=== PATIENT | female | born 1960 | race Caucasian/White ===

== ENCOUNTER → 2023-08-05 | Outpatient (CLI) | payer BC ==
[2023-08-05 12:02] LABS: ALT 27 U/L (4-34); AST 33 U/L (14-36); African American GFR (CKD) >90 (>60 ml/min/1.73 sqM); Albumin 4.5 g/dL (3.5-5.0); Albumin/Globulin Ratio 1.6; Alkaline Phosphatase 98 U/L (38-126); Anion Gap 10 mmol/L; Blood Urea Nitrogen 21 mg/dL (7-17); C Reactive Protein 0.6 mg/dL (<1.0); Calcium 9.8 mg/dL (8.4-10.2); Carbon Dioxide 27 mmol/L (22-30); Chloride 100 mmol/L (98-107); Creatine Kinase 70 U/L (30-135); Globulin 2.8 g/dL; Glucose 99 mg/dL (74-99); Non-African American GFR(CKD) 81 (>60 ml/min/1.73 sqM); Potassium 4.4 mmol/L (3.5-5.1); Sodium 137 mmol/L (137-145); Total Bilirubin 0.9 mg/dL (0.2-1.3); Total Protein 7.3 g/dL (6.3-8.2); Uric Acid 4.4 mg/dL (3.7-7.4)
[2023-08-05 12:08] LABS: NT-Pro-B-Type Natriuretic Pept 372 pg/mL
[2023-08-05 12:13] LABS: Appearance,Urine Clear (Clear); Color,Urine Yellow
[2023-08-05 12:14] LABS: Bilirubin,Urine Negative (Negative); Blood,Urine Negative (Negative); Glucose,Urine (UA) Negative (Negative); Ketones,Urine Negative (Negative); Leukocyte Esterase,Urine Negative (Negative); Nitrite,Urine Negative (Negative); Protein,Urine Negative (Negative); Urobilinogen,Urine 0.2 mg/dL (<2.0)
[2023-08-05 12:23] LABS: Creatinine,Urine Random 40.1 mg/dL; Protein/Creatinine Ratio,Urine 0.299
[2023-08-05 16:07] LABS: Chol/HDL Ratio 2.28 Ratio; LDL Cholesterol,Calculated 95.9 mg/dL (0.0-131.0)
[2023-08-05 18:23] LABS: Basophils # (A) 0.05 X 10*3/uL (0.00-0.10); Basophils % (A) 0.7 %; Eosinophils # (A) 0.12 X 10*3/uL (0.04-0.35); Eosinophils % (A) 1.6 %; HCT 46.7 % (37.2-46.3); HGB 15.4 g/dL (12.0-15.0); Lymphocytes # (A) 0.88 X 10*3/uL (0.90-5.00); Lymphocytes % (A) 11.8 %; MCH 30.9 pg (27.0-32.0); MCV 93.8 FL (80.0-97.0); Mean Platelet Volume 9.5 FL (9.5-12.2); Monocytes # (A) 0.43 X 10*3/uL (0.20-1.00); Monocytes % (A) 5.8 %; NRBC Per 100 WBC 0 X 10*3/uL (0.00-0.01); Neutrophils # (A) 5.95 X 10*3/uL (1.80-7.70); Neutrophils % (A) 79.7 %; Platelet Count 263 X 10*3/uL (140-440); RBC 4.98 X 10*6/uL (4.10-5.20); RDW 12.8 % (11.5-14.5); WBC 7.46 X 10*3/uL (4.50-10.00)
[2023-08-05 18:31] LABS: Erythrocyte Sedimentation Rate 6 mm/Hr (0-30)
[2023-08-05 19:40] LABS: Hepatitis B Core IgM Nonreactive; Hepatitis B Surface AB- Quant 3.5 mIU/mL; Hepatitis B Surface Antigen Nonreactive; Hepatitis C IgG Antibody Nonreactive
[2023-08-06 07:15] LABS: Anti-Smith Ab Interp Negative (Negative)
== END | disposition home or self-care (01) ==
LOC: LABWHC1 10:04
PROVIDERS: ATTEND Family Medicine
DX: Z00.00 Encounter for general adult medical examination without abnormal findings (principal); M34.9 Systemic sclerosis, unspecified
CPT/HCPCS: 36415; 80053; 80061; 81003; 82085; 82550; 82570; 83880; 84156; 84550; 85025; 85652; 86038; 86039; 86140; 86235; 86480; 86704; 86705; 86706; 86803; 87340

== ENCOUNTER → 2023-08-16 | Outpatient (CLI) | payer BC ==
--- NOTE | 2023-08-16 12:19 | CA ---
Transthoracic Echo Report Name: Audrey Wolf Age: 63 Gender: F : 1960 Exam Date: 08/16/2023 11:33 Exam Location: [facility] Ht (in): 62 Wt (lb): 120 Ordering Physician: Dulce Maria North DO Attending/Referring Phys: Dulce Maria North DO [employer] Sabillon Procedure CPT: Indications: M34.9 Systemic Sclerosis Cardiac Hx: Technical Quality: Fair Contrast 1: Total Dose (mL): Contrast 2: Total Dose (mL): MEASUREMENTS (Male / Female) Normal Values 2D ECHO LV Diastolic Diameter PLAX 3.6 cm 4.2 - 5.9 / 3.9 - 5.3 cm LV Systolic Diameter PLAX 2.4 cm IVS Diastolic Thickness 1.0 cm 0.6 - 1.0 / 0.6 - 0.9 cm LVPW Diastolic Thickness 0.9 cm 0.6 - 1.0 / 0.6 - 0.9 cm LV Relative Wall Thickness 0.5 RV Internal Dim ED PLAX 2.7 cm LVOT Diameter 2.0 cm Aortic Root Diameter 2.6 cm LA Systolic Diameter LX 1.9 cm 3.0 - 4.0 / 2.7 - 3.8 cm LV Diastolic Volume MOD BP 38.6 cm??? 67 - 155 / 56 - 104 cm??? LV Systolic Volume MOD BP 10.5 cm??? 22 - 58 / 19 - 49 cm??? LV Ejection Fraction MOD BP 72.8 % >= 55 % LV Cardiac Index MOD BP 1361.8 cm???/min???m??? LV Diastolic Volume MOD 4C 39.5 cm??? LV Systolic Volume MOD 4C 9.6 cm??? LV Ejection Fraction MOD 4C 75.8 % LV Cardiac Index MOD 4C 1451.6 cm???/min???m??? LV Diastolic Length 4C 6.4 cm LV Systolic Length 4C 5.8 cm LV Diastolic Volume MOD 2C 36.2 cm??? LV Systolic Volume MOD 2C 10.5 cm??? LV Ejection Fraction MOD 2C 71.0 % LV Cardiac Index MOD 2C 1244.7 cm???/min???m??? LV Diastolic Length 2C 6.1 cm LV Systolic Length 2C 5.2 cm LA Volume 26.3 cm??? 18 - 58 / 22 - 52 cm??? LA Volume Index 17.0 cm???/m??? 16 - 28 cm???/m??? DOPPLER AV Peak Velocity 155.9 cm/s AV Peak Gradient 9.7 mmHg LVOT Peak Velocity 131.5 cm/s LVOT Peak Gradient 6.9 mmHg LVOT Velocity Time Integral 25.7 cm LVOT Stroke Volume 79.5 cm??? LVOT Stroke Volume Index 51.7 ml/m??? LVOT Cardiac Index 3852.4 cm???/min???m??? AV Area Cont Eq pk 2.6 cm??? MV Peak Velocity 115.6 cm/s MV Peak Gradient 5.3 mmHg MV Mean Velocity 60.6 cm/s MV Mean Gradient 1.8 mmHg MV Velocity Time Integral 31.2 cm MR Peak Velocity 228.9 cm/s MR Peak Gradient 21.0 mmHg Mitral E Point Velocity 99.3 cm/s Mitral A Point Velocity 83.1 cm/s Mitral E to A Ratio 1.2 MV Deceleration Time 186.5 ms MV E' Velocity 7.1 cm/s Mitral E to MV E' Ratio 13.9 TR Peak Velocity 256.6 cm/s TR Peak Gradient 26.3 mmHg Right Ventricular Systolic Press 31.3 mmHg PV Peak Velocity 85.2 cm/s PV Peak Gradient 2.9 mmHg FINDINGS Left Ventricle Normal LV size and wall thickness.normal left ventricular wall motion. Left ventricular ejection fraction is estimated at 55-60 %. Normal left ventricular diastolic filling pattern. Right Ventricle Normal right ventricular size. RVSP= 31mmHg. Right Atrium Normal right atrial size. Left Atrium Normal left atrial size. Mitral Valve Structurally normal mitral valve. Mild MR.mitral annular calcification. Aortic Valve Aortic valve sclerosis. No aortic valve stenosis or regurgitation. Tricuspid Valve Structurally normal tricuspid valve. Mild TR. Pulmonic Valve Pulmonic valve not well visualized. No pulmonic regurgitation. Pericardium Normal pericardium. Aorta Normal size aortic root and proximal ascending aorta. CONCLUSIONS 1. Normal left ventricular size and systolic function 2. Mild mitral and tricuspid regurgitation with no evidence of pulmonary hypertension Previewed by: Dr. Marco Hayes MD (Electronically Signed) Final Date: 16 August 2023 12:18
== END ==
LOC: CPPFTMAIN 09:18
PROVIDERS: ATTEND Internal Medicine Rheumatology
DX: M34.9 Systemic sclerosis, unspecified (principal); I36.1 Nonrheumatic tricuspid (valve) insufficiency
CPT/HCPCS: 93306; 94060; 94618; 94726; 94729

== ENCOUNTER 2023-09-20 06:30 | Day surgery (SDC) | payer BC ==
[2023-09-20] MEDS ORDERED: LIDOCAINE 1% (10MG/ML) FOR IV START INTRADERMA PRN (06:52)
[2023-09-20] MEDS ORDERED: LACTATED RINGERS 1,000 ML IV SCH (06:52)
[2023-09-20 06:59] VITALS: TEMP 97.6
[2023-09-20] MEDS ORDERED: ONDANSETRON 4 MG/2 ML VIAL IVP PRN (07:00)
[2023-09-20] MEDS ORDERED: LIDOCAINE 1% INJ 10MG/ML (20 ML MDV) ONE (07:38)
[2023-09-20] MEDS ORDERED: PROPOFOL 10 MG/ML 20 ML VIAL IV ONE (07:38)
--- NOTE | 2023-09-20 08:00 | P.PCN ---
Date of Procedure: 09/20/23 Procedure(s) Performed: BRIEF HISTORY: Patient is a 63-year-old pleasant white female scheduled for an elective colonoscopy as a part of screening for colon cancer/positive cologuard. PROCEDURE PERFORMED: Colonoscopy. PREOPERATIVE DIAGNOSIS: Screening for colon cancer/positive cologuard. IV sedation per Anesthesia. PROCEDURE: After informed consent was obtained, the patient, was brought into the endoscopy unit. IV sedation was administered by Anesthesia under continuous monitoring. Digital rectal examination was normal. Initially the Olympus CF-160 flexible video colonoscope was then inserted in the rectum, gradually advanced into the cecum without any difficulty. Careful examination was performed as the scope was gradually being withdrawn. Ileocecal valve and the appendiceal orifice were visualized and appeared normal. Prep was excellent. Mucosa of the cecum, ascending colon, transverse colon, descending colon, sigmoid colon, and rectum appeared normal. Retroflexion was performed in the rectum and no lesions were seen. The patient tolerated the procedure well. IMPRESSION: Normal-appearing colon from rectum to cecum with no evidence of colorectal neoplasia . Recommendations. Findings of this examination were discussed with the patient as well as well as her family. She was advised to have a repeat surveillance colonoscopy in 10 years.
[2023-09-20 08:42] VITALS: BP 138/83; PULSE 74; RESP 18
== END 2023-09-20 08:48 | disposition home or self-care (01) ==
LOC: ORWHC2ENDO 06:30
PROVIDERS: ATTEND Internal Medicine Gastroenterology
DX: R19.5 Other fecal abnormalities (principal); I10 Essential (primary) hypertension; M19.90 Unspecified osteoarthritis, unspecified site; K21.9 Gastro-esophageal reflux disease without esophagitis; Z79.899 Other long term (current) drug therapy
CPT/HCPCS: 45378; J2001; J2704

== ENCOUNTER → 2024-03-05 | Outpatient (CLI) | payer BC ==
--- NOTE | 2024-03-07 14:15 | MM ---
Reason for Exam: Screening (asymptomatic). Last mammogram was performed 1 year(s) and 6 month(s) ago. Patient History: Menarche at age 12. Patient has no children. Postmenopausal. Risk Values: Jocelyn 5 year model risk: 1.8%. NCI Lifetime model risk: 7.2%. Prior Study Comparison: 09/17/2019 Bilateral Screening Mammogram, Unknown. 09/14/2022 Bilateral Screening Mammogram, Unknown. Tissue Density: There are scattered areas of fibroglandular density. Findings: Analyzed By CAD. Right breast: There is no suspicious group of microcalcifications or new suspicious mass. Left breast: There is no suspicious group of microcalcifications or new suspicious mass. Overall Assessment: Negative, BI-RAD 1 Management: Screening Mammogram of both breasts in [address] [facility] will attempt to contact patient to return for supplemental views and ultrasound if indicated. Patient should continue monthly self-breast exams. A clinical breast exam by your physician is recommended on an annual basis. This exam should not preclude additional follow-up of suspicious palpable abnormalities. Note on Jocelyn scores and lifetime risk: 1. A Jocelyn score greater than 3% is considered moderate risk. If this is the case, consider specialist referral to assess eligibility for a risk reducing agent. 2. If overall lifetime risk for the development of breast cancer is 20% or higher, the patient may qualify for future screening with alternating mammogram and breast MRI. Electronically signed and approved by: Sha Garcia DO
== END | disposition home or self-care (01) ==
LOC: RADMAMWWP 14:29
PROVIDERS: ATTEND Family Medicine
DX: Z12.31 Encounter for screening mammogram for malignant neoplasm of breast (principal); M81.0 Age-related osteoporosis without current pathological fracture; Z78.0 Asymptomatic menopausal state
CPT/HCPCS: 77063; 77067; 77080

== ENCOUNTER → 2025-01-08 | Outpatient (CLI) | payer MEDICARE | LOC: CPPFTMAIN 10:23 | PROVIDERS: ATTEND Internal Medicine Rheumatology | DX: M34.9 Systemic sclerosis, unspecified (principal); K22.70 Barrett's esophagus without dysplasia; I73.00 Raynaud's syndrome without gangrene; Z91.040 Latex allergy status; Z91.048 Other nonmedicinal substance allergy status | CPT/HCPCS: 94060; 94726; 94729 ==

== ENCOUNTER → 2025-03-19 | Outpatient (CLI) | payer MEDICARE ==
--- NOTE | 2025-03-19 15:52 | MM ---
Reason for Exam: Screening (asymptomatic). Last screening mammogram was performed 12 month(s) ago. Patient History: Menarche at age 12. Patient has no children. Postmenopausal. Risk Values: Jocelyn 5 year model risk: 1.8%. NCI Lifetime model risk: 6.9%. Prior Study Comparison: 09/17/2019 Bilateral Screening Mammogram, Unknown. 09/14/2022 Bilateral Screening Mammogram, Unknown. 03/05/2024 Bilateral MG 3D screening mammo w/cad, [facility]. Tissue Density: There are scattered areas of fibroglandular density. Findings: Analyzed By CAD. Right breast: There is no suspicious group of microcalcifications or new suspicious mass. Left breast: Stable left benign nodular asymmetries upper aspect on MLO view. There is no suspicious group of microcalcifications or new suspicious mass. Overall Assessment: Benign, BI-RAD 2 Management: Screening Mammogram of both breasts in [address] [facility] will attempt to contact patient to return for supplemental views and ultrasound if indicated. Patient should continue monthly self-breast exams. A clinical breast exam by your physician is recommended on an annual basis. This exam should not preclude additional follow-up of suspicious palpable abnormalities. Note on Jocelyn scores and lifetime risk: 1. A Jocelyn score greater than 3% is considered moderate risk. If this is the case, consider specialist referral to assess eligibility for a risk reducing agent. 2. If overall lifetime risk for the development of breast cancer is 20% or higher, the patient may qualify for future screening with alternating mammogram and breast MRI. [facility], , 03/19/2025 3:49 PM. Electronically signed and approved by: Sha Garcia DO
== END | disposition home or self-care (01) ==
LOC: RADMAMWWP 13:50
PROVIDERS: ATTEND Family Medicine
DX: Z12.31 Encounter for screening mammogram for malignant neoplasm of breast (principal); R92.323 Mammographic fibroglandular density, bilateral breasts; Z78.0 Asymptomatic menopausal state
CPT/HCPCS: 77063; 77067